=== PATIENT | female | born 1990 | race Caucasian/White ===

== ENCOUNTER 2019-09-03 13:36 | Emergency (ER) | payer OTHER ==
--- NOTE | 2019-09-03 13:49 | PDOC ---
History of Present Illness - General Chief Complaint: Revisit, Lab Variance Stated Complaint: LAB VARIANCE Time Seen by Provider: 09/03/19 13:49 History Source: Patient Exam Limitations: No Limitations Past History - Past Medical History Allergies/Adverse Reactions: Allergies Allergy/AdvReac Type Severity Reaction Status Date / Time No Known Allergies Allergy Verified 09/03/19 13:45 Home Medications: Ambulatory Orders Docusate Sodium [Colace] 100 mg PO TID 09/03/19 Lamotrigine [Lamictal -] 100 mg PO HS 09/03/19 Lubiprostone [Amitiza] 24 mcg PO BID 09/03/19 Norethindrone AC-Eth Estradiol [Junel] 1 each PO DAILY 09/03/19 Polyethylene Glycol 3350 [Miralax (For Daily Use) -] 17 gm PO TID 09/03/19 Sarecycline HCl [Seysara] 100 mg PO DAILY 09/03/19 Sertraline HCl [Zoloft] 200 mg PO HS 09/03/19 Medical Decision Making - Medical Decision Making 09/03/19 14:18 HPI: 29F PMH anorexia/bulemia sent from [facility] for lab abnormalities. Pt checked in for treatment of anorexia/bulemia on 09/01/19 and started on refeeding protocol. Had a lab draw today finding Na 129, K 3.1, Cl 91, and glucose 39. Pt states she did not eat before labs were drawn but has since had food. Pt denies any symptoms. Denies changes in behavior (per aide at bedside). Denies headache, lightheadedness, dizziness, numbness, tingling, weakness, chest pain, sob, n/v. Endorses diarrhea 2/2 laxatives as purge behavior, last episode 09/01/19. ROS: CONSTITUTIONAL: Denies F / C HEENT: Denies headache, lightheadedness, dizziness RESP: Denies SOB CARD: Denies chest pain, palpitations GI: Endorses diarrhea 2/2 intention laxative use. Denies N / V, abdominal pain, inability to tolerate PO NEURO: Denies numbness, tingling, weakness PSYCH: Denies changes in behavior, mental status PE: GEN: Thin appearing, NAD, comfortable. AAOx3 HEENT: NC/AT, EOMI, PERRLA. No facial asymmetry. Normal voice. Supple neck w/ FROM. CV: S1/S2, RRR, no m/r/g LUNG: CTAB, no wheezes, crackles, rales, rhonchi. GI: soft, ndnt, +BS, no guarding, no rebound. No masses. EXTREMITIES: 2+ distal pulses. No LE edema. No obvious deformities of all extremities. SKIN: warm, dry, normal turgor PSYCH: normal mood and affect NEURO: Ambulates with normal gait. 5/5 strength LE and UE b/l. Symmetric sensation. MDM: 29F w/ eating disorder sent in from treatment facility for Na 129, K 3.1, Cl 91 , and glucose 39. Pt asymptomatic. - POC - 40mEQ KDUR 09/03/19 14:19 POC 139 DC back to facility Discharge - Discharge Information Problems reviewed: Yes Clinical Impression/Diagnosis: Labor abnormal Condition: Good Disposition: HOME - Admission No - Follow up/Referral Referrals: Rose Serrano NP [Primary Care Provider] - - Patient Discharge Instructions Additional Instructions: You were seen and treated in the Emergency Department You were given potassium repletion Your blood glucose is 139 We expect the sodium and chloride to normalize with your current refeeding protocol and treatment These electrolytes can be affected by diarrhea. Follow up with your Primary Care Doctor within the next 7 days. IMMEDIATELY return to the Emergency Department if you experience any of the following: - change in behavior - seizures - chest pain - loss of sensation or motor function - ANYTHING that concerns you - Post Discharge Activity
--- NOTE | 2019-09-03 13:52 | PDOC ---
Attending Attestation - Resident Resident Name: Francisco Tejada - HPI HPI: 09/03/19 14:34 Pt presents to the ED after sent in from inpatient eating disorder facility for abnormal labs. Labs show a sodium of 129, a glucose of 39 and a potassium of 3.1. PAtient denies complaints . She reports that her sodium is often in the 128-130 range. - Physicial Exam PE: 09/03/19 14:43 Agree with resident exam. patient is alert and oriented and in no acute distress. Lungs are clear. heart regular rate and rhythm, no murmurs. Abdomen soft, non tender, non distended. - Medical Decision Making 09/03/19 14:48 Pt presents to the ED secondary to mild electrolyte abnormalities seen on fasting labs. FS is 139 in the ED. Given PO potassium. Na and Cl do not require treatment at this time and are most likely secondary to bullemia. Will discharge home with instructions to return to the ED for worsening symptoms.
[2019-09-03 14:01] VITALS: BP 117/68; PULSE 82; TEMP 97.8; BMI 13.3
[2019-09-03] MEDS ORDERED: POTASSIUM CHLORIDE TABS 20 MEQ TABLET.ER (FP) PO ONE ×2 (14:08→14:11)
== END 2019-09-03 14:33 | disposition home or self-care (01) ==
LOC: FER 13:36
DX: R79.9 Abnormal finding of blood chemistry, unspecified (principal); R63.0 Anorexia; Z68.1 Body mass index [BMI] 19.9 or less, adult
CPT/HCPCS: 82962; 99281-25